=== PATIENT | female | born 1955 | race Caucasian/White ===

== ENCOUNTER 2017-12-30 12:46 | Emergency (ER) | payer BC ==
--- NOTE | 2017-12-30 12:56 | EDM.PDOC ---
ED HPI GENERAL MEDICAL PROBLEM - General Chief Complaint: Lower Extremity Injury/Pain Stated Complaint: STEPPED ON A SARAHI TO LEFT FOOT Time Seen by Provider: 12/30/17 12:51 Source of Information: Reports: Patient History Limitations: Reports: No Limitations - History of Present Illness INITIAL COMMENTS - FREE TEXT/NARRATIVE: HISTORY AND PHYSICAL: History of present illness: Patient is a 62-year-old female who presents to the emergency room today with complaints of a laceration/puncture injury to her left lateral ankle. She states she was trying to pull a sarahi out of the garden and it slipped through her hand puncturing her left lateral ankle. She does have moderate swelling, with bleeding controlled with a dressing bandage. Tetanus was last updated 4 years ago. Review of systems: As per history of present illness and below otherwise all systems reviewed and negative. Past medical history: As per history of present illness and as reviewed below otherwise noncontributory. Surgical history: As per history of present illness and as reviewed below otherwise noncontributory. Social history: No reported history of drug or alcohol abuse. Family history: As per history of present illness and as reviewed below otherwise noncontributory. Physical exam: General: Well-developed and well-nourished 62-year-old female. Alert and oriented. Nontoxic appearing and in no acute distress. HEENT: Atraumatic, normocephalic, pupils equal and reactive bilaterally, negative for conjunctival pallor or scleral icterus, mucous membranes moist, throat clear, neck supple, nontender, trachea midline. No drooling or trismus noted. No meningeal signs Lungs: Clear to auscultation, breath sounds equal bilaterally, chest nontender. Heart: S1S2, regular rate and rhythm without overt murmur Abdomen: Soft, nondistended, nontender. Negative for masses or hepatosplenomegaly. Negative for costovertebral tenderness. Pelvis: Stable nontender. Genitourinary: Deferred. Rectal: Deferred. Skin: 2 cm laceration to the left lateral malleolus with adipose tissue exposed. Otherwise skin is intact, warm, dry. No lesions or rashes noted. Extremities: Moves all extremities per self without difficulty or deficits. See skin assessment for laceration details. Soft tissue swelling at laceration site. Strong pedal pulses bilaterally. Capillary refill less than 3 seconds. She is negative for cords or calf pain. Neurovascular unremarkable. Neuro: Awake, alert, oriented. Cranial nerves II through XII unremarkable. Cerebellum unremarkable. Motor and sensory unremarkable throughout. Exam nonfocal. Notes: X-ray will be obtained to make sure there is no foreign bodies in the laceration. Her tetanus is up to date. Area was anesthetized with 1% lidocaine. Cleansed with chlorhexidine and wound wash. Sterile technique was used. 4-0 Nylon, # 6 interrupted sutures were placed. Bacitracin, nonstick dressing applied. Crutches were offered. Supportive care measures were reviewed and discussed. She denies any further questions or concerns at this time. Diagnostics: X-ray Therapeutics: 1% lidocaine, wound care, sutures, Bacitracin, nonstick dressing Impression: Laceration, left ankle Plan: 1. Keep the area clean and dry. Monitor for signs of infection. 2. Sutures to be removed in 7-10 days.Rest, ice, elevate the extremity. 3. Follow-up with your primary caregiver in the next 1-2 days. Return to the ED as needed and as discussed. Definitive disposition and diagnosis as appropriate pending reevaluation and review of above. Onset: Today Duration: Minutes: Location: Reports: Lower Extremity, Left - Related Data Allergies Allergy/AdvReac Type Severity Reaction Status Date / Time morphine Allergy Vomiting Verified 12/30/17 12:56 IV Dye Allergy Syncope Uncoded 12/30/17 12:56 Home Meds: Home Meds Levothyroxine Sodium [Levoxyl] 1 tab PO DAILY 01/16/16 [History] Aspirin 1 tab PO DAILY 12/30/17 [History] Multivitamin [Multivitamins] 1 tab PO DAILY 12/30/17 [History] Past Medical History HEENT History: Reports: None Cardiovascular History: Reports: None Respiratory History: Reports: None Gastrointestinal History: Reports: None Genitourinary History: Reports: None [employer]ATION[employer] History: Reports: None Musculoskeletal History: Reports: Fracture Other Neuro History: has motion sickness Psychiatric History: Reports: None Endocrine/Metabolic History: Reports: Hypothyroidism, Obesity/BMI 30+ Hematologic History: Reports: None Immunologic History: Reports: None Oncologic (Cancer) History: Reports: None Dermatologic History: Reports: None - Past Surgical History GI Surgical History: Reports: Bariatric Procedure, Colonoscopy Female Surgical History: Reports: Breast Implant Social & Family History - Tobacco Use Smoking Status *Q: Former Smoker - Recreational Drug Use Recreational Drug Use: No Drug Use in Last 12 Months: No Review of Systems - Review of Systems Review Of Systems: ROS reveals no pertinent complaints other than HPI. ED EXAM, GENERAL - Physical Exam Exam: See Below (See dictation) Course - Vital Signs Last Recorded V/S: Last Vital Signs Temp 96.8 F 12/30/17 12:53 Pulse 74 12/30/17 12:53 Resp 16 12/30/17 12:53 BP 155/89 H 12/30/17 12:53 Pulse Ox 95 12/30/17 12:53 - Orders/Labs/Meds Meds: Medications Discontinued Medications Generic Name Dose Route Start Last Admin Trade Name Freq PRN Reason Stop Dose Admin Lidocaine HCl 20 ml 12/30/17 13:05 12/30/17 13:44 Xylocaine 1% INJECT 12/30/17 13:06 20 ml ONETIME ONE Administration Departure - Departure Time of Disposition: 14:23 Disposition: Home, Self-Care 01 Clinical Impression: Laceration - Discharge Information Referrals: PCP,None [Primary Care Provider] - Forms: ED Department Discharge Additional Instructions: The following information is given to patients seen in the emergency department who are being discharged to home. This information is to outline your options for follow-up care. We provide all patients seen in our emergency department with a follow-up referral. The need for follow-up, as well as the timing and circumstances, are variable depending upon the specifics of your emergency department visit. If you don't have a primary care physician on staff, we will provide you with a referral. We always advise you to contact your personal physician following an emergency department visit to inform them of the circumstance of the visit and for follow-up with them and/or the need for any referrals to a consulting specialist. The emergency department will also refer you to a specialist when appropriate. This referral assures that you have the opportunity for follow-up care with a specialist. All of these measure are taken in an effort to provide you with optimal care, which includes your follow-up. Under all circumstances we always encourage you to contact your private physician who remains a resource for coordinating your care. When calling for follow-up care, please make the office aware that this follow-up is from your recent emergency room visit. If for any reason you are refused follow-up, please contact the [facility] at and asked to speak to the emergency department charge nurse. [facility] [address] [place] [id number] 1. Keep the area clean and dry. Monitor for signs of infection. 2. Sutures to be removed in 7-10 days.Rest, ice, elevate the extremity. 3. Follow-up with your primary caregiver in the next 1-2 days. Return to the ED as needed and as discussed.
[2017-12-30] MEDS ORDERED: Lidocaine 1% 20 ML MDV INJECT ONE (13:05)
--- NOTE | 2017-12-30 14:17 | CR ---
EXAMINATION: Left ankle HISTORY: Laceration, access for foreign body COMPARISON: 10/21/2007 TECHNIQUE: 2 views FINDINGS/IMPRESSION: There is screw and plate fixation of the distal fibula and a single screw fixati ng the medial malleolus without evidence of an underlying fracture. Moderate soft tissue swelling wit h subcutaneous air is noted overlying the lateral malleolus, correlate clinically for site of lacerat ion. Moderate Achilles and plantar calcaneal spurs.
[2017-12-30] MEDS ORDERED: Bacitracin Oint 1 GM U/D Packet TOP ONE (14:23)
[2017-12-30 14:54] VITALS: BP 140/78
== END 2017-12-30 14:50 | disposition home or self-care (01) ==
LOC: MW.ED 12:46
DX: S91.012A Laceration without foreign body, left ankle, initial encounter (principal); Z91.041 Radiographic dye allergy status; Z88.5 Allergy status to narcotic agent; Z79.899 Other long term (current) drug therapy; E66.9 Obesity, unspecified; Z87.891 Personal history of nicotine dependence
CPT/HCPCS: 73600-26-LT; 73600-LT; 99283

== ENCOUNTER 2018-01-07 14:33 | Emergency (ER) | payer BC ==
[2018-01-07 14:42] VITALS: BP 148/80
== END 2018-01-07 14:45 | disposition home or self-care (01) ==
LOC: MW.ED 14:33
DX: Z53.21 Procedure and treatment not carried out due to patient leaving prior to being seen by health care provider (principal)

== ENCOUNTER 2022-02-23 08:08 | Day surgery (SDC) | payer MEDICARE, OTHER ==
[~2022-02-23 08:08] MED LIST: Lactated Ringers 1,000 ML IV SCH; Lidocaine 2% 5 ML SDV ONE; Ondansetron 4 MG/2 ML SDV ONE; Propofol 200 MG/20 ML SDV ONE; fentaNYL 100 MCG/2 ML SDV ONE
[2022-02-23] MEDS ORDERED: Lactated Ringers 1,000 ML IV SCH (10:30)
[2022-02-23] MEDS ORDERED: Dexmedetomidine 200 MCG/2 ML SDV ONE (10:54)
[2022-02-23] MEDS ORDERED: Water For Injection, Sterile 20 ML ONE (10:54)
[2022-02-23 11:38] VITALS: BP 119/66; PULSE 56
== END 2022-02-23 11:20 | disposition home or self-care (01) ==
LOC: MW.SDS 08:08
PROVIDERS: ATTEND Surgery
DX: K57.30 Diverticulosis of large intestine without perforation or abscess without bleeding (principal); K29.50 Unspecified chronic gastritis without bleeding; K22.70 Barrett's esophagus without dysplasia; K31.89 Other diseases of stomach and duodenum; D64.9 Anemia, unspecified; K20.90 Esophagitis, unspecified without bleeding; K25.9 Gastric ulcer, unspecified as acute or chronic, without hemorrhage or perforation; E78.5 Hyperlipidemia, unspecified; E03.9 Hypothyroidism, unspecified; E66.9 Obesity, unspecified; E61.1 Iron deficiency; Z91.041 Radiographic dye allergy status; Z88.5 Allergy status to narcotic agent; Z79.82 Long term (current) use of aspirin; Z79.890 Hormone replacement therapy; Z98.890 Other specified postprocedural states; Z87.891 Personal history of nicotine dependence
CPT/HCPCS: 00813; 88305; 88342; J2405; J2704; J3010; J7120